=== PATIENT | male | born 1930 | race Caucasian/White ===

== ENCOUNTER 2018-03-20 18:26 | Inpatient (IN) | payer OTHER, BC ==
--- NOTE | 2018-03-20 19:08 | RAD REPORT ---
EXAM DESCRIPTION: CT - Head Brain Wo Cont - 03/20/2018 7:00 pm CLINICAL HISTORY: Confused;Declining state Headache, drowsiness COMPARISON: Head C Spine Mpr Wo Con dated 11/07/2017 TECHNIQUE: All CT scans are performed using dose optimization technique as appropriate and may inclu de automated exposure control or mA/KV adjustment according to patient size. FINDINGS: No intracranial hemorrhage, hydrocephalus or extra-axial fluid collection.Mild generalized brain atrophy is present with mild periventricular and deep white matter chronic microvascular ische grace changes.No areas of brain edema or evidence of midline shift. Fluid is present in the left maxillary antrum, ethmoid air cells and left frontal sinus compatible wi th multifocal sinusitis. The calvarium is intact. IMPRESSION: No acute intracranial abnormality. Multifocal sinusitis.
[2018-03-20 19:49] LABS: Absolute Lymphocytes (CBC) 1.1 K/uL (0.7-4.9); Absolute Monocytes 0.8 K/uL (0.1-1.3); Absolute Neutrophil 6.9 K/uL (1.8-8.0); Basophils % 0.7 % (0-1.3); Eosinophils % 0.3 % (0-4.4); Hematocrit 35.8 % (39.6-49.0); Lymphocytes % 12.1 % (15.3-44.8); MPV 9.3 fL (7.6-11.3); Monocytes % 9.2 % (3.3-12.3)
--- NOTE | 2018-03-20 20:00 | RAD REPORT ---
EXAM DESCRIPTION: RAD - Chest Single View - 03/20/2018 7:08 pm CLINICAL HISTORY: FEVER Chest pain. COMPARISON: Chest Single View dated 11/07/2017 FINDINGS: Portable technique limits examination quality. Linear opacities are present left retrocardiac region which may represent atelectasis or early pneumo toma. The lungs are otherwise clear. The heart is normal in size. No displaced fractures.
[2018-03-20 20:04] LABS: Protime INR 1.18
[2018-03-20 20:13] LABS: ALT/SGPT 20 U/L (12-78); AST/SGOT 15 U/L (15-37); Albumin 3.3 g/dL (3.4-5.0); Alkaline Phosphatase 90 U/L (45-117); BUN Blood Urea Nitrogen 21 mg/dL (7-18); Bicarbonate 27 mmol/L (21-32); Bilirubin Direct 0.2 mg/dL (0-0.2); Bilirubin Total 0.7 mg/dL (0.2-1.0); CKMB Creatine Kinase MB < 1.0 ng/mL (0.3-3.6); Creatine Phosphokinase 35 U/L (39-308); Glucose Level 135 mg/dL (74-106); Lipase 129 U/L (73-393); Sodium Level 139 mmol/L (136-145); Troponin (Emerg Dept Use Only) < 0.02 ng/mL (0.0-0.045)
[2018-03-20 20:15] LABS: Urine Amorphous Sediment 1+ /HPF (NONE SEEN); Urine Bacteria <20 /HPF (NONE SEEN); Urine Culture Reflex Order NOT NEEDED
[2018-03-20 20:16] LABS: Urine Blood 2+ (NEG); Urine Glucose NEGATIVE (NEG); Urine Protein 1+ (NEG); Urine Specific Gravity 1.025 (1.005-1.030)
--- NOTE | 2018-03-20 20:32 | EDPHYS ---
Physician Documentation [facility] Name: French Larson Age: 87 yrs Sex: Male : 1930 Arrival Date: 03/20/2018 Time: 18:43 Bed 3 Private MD: ED Physician Adal Merrill HPI: 03/20 19:20 This 87 yrs old Male presents to ER via EMS with complaints of Altered Mental jr8 Status. 19:20 The patient presents with confusion, decreased mental status, decreased responsiveness. jr8 Onset: The symptoms/episode began/occurred acutely, today, at 14:30. Possible causes: unknown. Associated signs and symptoms: The patient has no apparent associated signs or symptoms. Current symptoms: In the emergency department the patient's symptoms are unchanged from the initial presentation. Patient's baseline: Neuro: alert but confused, Motor: no deficits, Ambulation: walks without assistance, Speech: normal. The patient has not experienced similar symptoms in the past. The patient has not recently seen a physician. Historical: - Allergies: 19:12 PENICILLINS; jl7 - Home Meds: 19:12 sertraline 50 mg oral tab [Active]; lorazepam 1 mg Oral tab 1 tab PRN [Active]; jl7 memantine 28 mg Oral tab 1 cap once daily [Active]; aspirin 325 mg Oral tab 1 tab once daily [Active]; donepezil 10 mg Oral tab 1 tab once daily [Active]; fosinopril 20 mg Oral tab 1 tab once daily [Active]; simvastatin 20 mg Oral tab 1 tab once daily [Active]; donepezil 10 mg oral tab 1 tab once daily [Active]; Triamcinolone Acetonide [place] [Active]; - PMHx: 19:12 Alzheimers; Dementia; Hyperlipidemia; Hypertension; jl7 19:14 basal cell carcinoma; Depression; jl7 - PSHx: 19:14 Heart stents; jl7 - Immunization history:: Adult Immunizations up to date. - Social history:: Smoking status: Patient/guardian denies using tobacco. - Ebola Screening: : No symptoms or risks identified at this time. ROS: 19:20 Unable to obtain ROS due to altered mental status. jr8 Exam: 19:18 Eyes: Pupils equal round and reactive to light, extra-ocular motions intact. Lids and jr8 lashes normal. Conjunctiva and sclera are non-icteric and not injected. Cornea within normal limits. Periorbital areas with no swelling, redness, or edema. ENT: Nares patent. No nasal discharge, no septal abnormalities noted. Tympanic membranes are normal and external auditory canals are clear. Oropharynx with no redness, swelling, or masses, exudates, or evidence of obstruction, uvula midline. Mucous membranes moist. Neck: Trachea midline, no thyromegaly or masses palpated, and no cervical lymphadenopathy. Supple, full range of motion without nuchal rigidity, or vertebral point tenderness. No Meningismus. Cardiovascular: Regular rate and rhythm with a normal S1 and S2. No gallops, murmurs, or rubs. Normal PMI, no JVD. No pulse deficits. Respiratory: Lungs have equal breath sounds bilaterally, clear to auscultation and percussion. No rales, rhonchi or wheezes noted. No increased work of breathing, no retractions or nasal flaring. Abdomen/GI: Soft, non-tender, with normal bowel sounds. No distension or tympany. No guarding or rebound. No evidence of tenderness throughout. Back: No spinal tenderness. No costovertebral tenderness. Full range of motion. Skin: Warm, dry with normal turgor. Normal color with no rashes, no lesions, and no evidence of cellulitis. MS/ Extremity: Pulses equal, no cyanosis. Neurovascular intact. Full, normal range of motion. 19:18 Neuro: Orientation: to person, Mentation: able to follow commands, slow to respond, confused, Memory: immediate memory is impaired, remote memory is impaired, recent memory is impaired, Cranial nerves: extraocular movements are intact, Speech is dysarthric, slowed, slurred, Tongue strength is normal, Motor: moves all fours, Sensation: no obvious gross deficits, seizure activity, is not displayed by the patient, Abnormal movements: there are no abnormal movements. Vital Signs: 18:43 BP 136 / 69; Pulse 76; Resp 16 S; Temp 99.9(O); Pulse Ox 100% on R/A; jl7 19:15 BP 147 / 62; Pulse 77; Resp 18 S; Pulse Ox 100% on R/A; jl7 20:30 BP 146 / 66; Pulse 76; Resp 16; Pulse Ox 100% ; rr5 21:12 BP 129 / 76; Pulse 92; Resp 18; Pulse Ox 95% on R/A; ea 21:30 BP 130 / 84; Pulse 80; Resp 18; Pulse Ox 96% on R/A; ea NIH Stroke Scale Scores: 18:43 NIHSS Score: 11 jl7 19:18 NIHSS Score: 11 jr8 MDM: 18:44 Patient medically screened. [facility] 20:31 Data reviewed: vital signs, nurses notes, lab test result(s), EKG, radiologic studies, [facility] CT scan, plain films. Data interpreted: Pulse oximetry: on room air is 100 %. Interpretation: normal. Counseling: I had a detailed discussion with the patient and/or guardian regarding: the historical points, exam findings, and any diagnostic results supporting the discharge/admit diagnosis, lab results, radiology results, the need for further work-up and treatment in the hospital. Physician consultation: Elaine Robledo MD was called at 20:31, was contacted at 20:31, regarding admission, to the telemetry unit. consult, patient's condition, and will see patient. 03/20 18:45 Order name: Urine Culture [facility] 03/20 18:45 Order name: Basic Metabolic Panel [facility] 03/20 18:45 Order name: Blood Culture Adult (2) [facility] 03/20 18:45 Order name: CBC with Diff [facility] 03/20 18:45 Order name: Ckmb [facility] 03/20 18:45 Order name: CPK [facility] 03/20 18:45 Order name: Lactate [facility] 03/20 18:45 Order name: LFT's; Complete Time: 20:14 [facility] 03/20 18:45 Order name: Lipase; Complete Time: 20:14 [facility] 03/20 18:45 Order name: Procalcitonin; Complete Time: 20:26 [facility] 03/20 18:45 Order name: Protime (+inr); Complete Time: 20:08 [facility] 03/20 18:45 Order name: Ptt, Activated; Complete Time: 20:08 [facility] 03/20 18:45 Order name: Troponin (emerg Dept Use Only); Complete Time: 20:14 [facility] 03/20 18:45 Order name: Urine Microscopic Only; Complete Time: 20:26 [facility] 03/20 18:46 Order name: Urine Culture EDTX 03/20 18:46 Order name: Basic Metabolic Panel; Complete Time: 20:14 EDMS 03/20 18:46 Order name: Blood Culture EDMS 03/20 18:46 Order name: CBC with Automated Diff; Complete Time: 19:57 EDMS 03/20 18:46 Order name: CKMB Creatine Kinase MB; Complete Time: 20:14 EDMS 03/20 18:46 Order name: Creatine Phosphokinase; Complete Time: 20:14 EDMS 03/20 18:46 Order name: Lactate; Complete Time: 20:08 EDMS 03/20 19:53 Order name: Urine Dipstick--Ancillary (enter results); Complete Time: 20:26 2 03/20 20:49 Order name: CBC with Automated Diff EDMS 03/20 20:49 Order name: CBC with Automated Diff EDMS 03/20 20:49 Order name: Comprehensive Metabolic Panel EDMS 03/20 20:49 Order name: Comprehensive Metabolic Panel EDMS 03/20 20:49 Order name: Lipid Profile EDMS 03/20 20:49 Order name: Lipid Profile EDMS 03/20 20:49 Order name: Magnesium EDMS 03/20 20:49 Order name: Magnesium EDMS 03/20 18:45 Order name: Cath; Complete Time: 19:50 8 03/20 18:45 Order name: Chest Single View XRAY; Complete Time: 20:02 8 03/20 18:45 Order name: Accucheck; Complete Time: 19:49 8 03/20 18:45 Order name: Cardiac monitoring; Complete Time: 19:30 8 03/20 18:45 Order name: EKG - Nurse/Tech; Complete Time: 19:49 8 03/20 18:45 Order name: IV Saline Lock - Large Bore; Complete Time: 19:50 8 03/20 18:45 Order name: Labs collected and sent; Complete Time: 19:50 8 03/20 18:45 Order name: O2 Per Protocol; Complete Time: 19:30 8 03/20 18:45 Order name: O2 Sat Monitoring; Complete Time: 19:30 8 03/20 18:45 Order name: Urine Dipstick-Ancillary (obtain specimen); Complete Time: 19:49 8 03/20 18:45 Order name: CT Head Brain wo Cont; Complete Time: 19:21 8 03/20 20:47 Order name: NPO EDMS 03/20 20:47 Order name: NPO [facility] 03/20 20:48 Order name: Physical Therapy Consult [facility]TX 03/20 20:48 Order name: Speech Therapy Consult [facility]TX 03/20 20:48 Order name: NPO [facility] 03/20 20:48 Order name: Echo with Doppler [facility] 03/20 20:49 Order name: EKG Electrocardiogram [facility]TX 03/20 20:49 Order name: Phosphorus [facility]TX 03/20 20:49 Order name: Phosphorus [facility]TX 03/20 20:49 Order name: Stroke Protocol EDTX Administered Medications: No medications were administered Point of Care Testing: Blood Glucose: 19:30 Blood Glucose: 154 mg/dL; rr5 Ranges: Critical Glucose Levels:Adult <50 mg/dl or >400 mg/dl <40 mg/dl or >180 mg/dl Disposition: 03/21 09:21 Co-signature as Attending Physician, Adal Merrill MD I agree with the assessment and enio plan of care. Disposition: 03/20/18 20:31 Hospitalization ordered by Elaine Robledo for Inpatient Admission. Preliminary diagnosis is Altered mental status, unspecified. - Bed requested for Telemetry/MedSurg (Inpatient). - Status is Inpatient Admission. ea - Condition is Fair. - Problem is new. - Symptoms are unchanged. UTI on Admission? No NIH Stroke Scale - NIH Stroke Score Date: 03/20/2018 Time: 18:43 Total Score = 11 1a. Level of Consciousness (LOC) - 0(Alert) 1b. Level of Consciousness (LOC) (Year \T\ Age) - 2(Neither) 1c. LOC Commands (Open \T\ Closes Eyes/Pig Machine Operator Helper) - 0(Both) 2. Best Gaze (Lateral Gaze Paresis) - 0(Normal) 3. Visual Field Loss - 0(No visual loss) 4. Facial Palsy - 0(Normal) 5a. Left Arm: Motor (10-second hold) - 1(Drift) 5b. Right Arm: Motor (10-second hold) - 1(Drift) 6a. Left Leg: Motor (5-second hold - always test supine) - 1(Drift) 6b. Right Leg: Motor (5-second hold - always test supine) - 1(Drift) 7. Limb Ataxia (finger/nose \T\ heel/corea - test with eyes open) - 2(Present in two limbs) 8. Sensory Loss (pinprick arms/legs/face) - 0(Normal) 9. Best Language: Aphasia (description/naming/reading) - 2(Severe aphasia) 10. Dysarthria (speech clarity - read or repeat words) - 1(Mild to Moderate) 11. Extinction and Inattention (visual/tactile/auditory/spatial/personal) - 0(No abnormality) Initials: jl7 NIH Stroke Scale - NIH Stroke Score Date: 03/20/2018 Time: 19:18 Total Score = 11 1a. Level of Consciousness (LOC) - 0(Alert) 1b. Level of Consciousness (LOC) (Year \T\ Age) - 2(Neither) 1c. LOC Commands (Open \T\ Closes Eyes/Pig Machine Operator Helper) - 0(Both) 2. Best Gaze (Lateral Gaze Paresis) - 0(Normal) 3. Visual Field Loss - 0(No visual loss) 4. Facial Palsy - 0(Normal) 5a. Left Arm: Motor (10-second hold) - 1(Drift) 5b. Right Arm: Motor (10-second hold) - 1(Drift) 6a. Left Leg: Motor (5-second hold - always test supine) - 1(Drift) 6b. Right Leg: Motor (5-second hold - always test supine) - 1(Drift) 7. Limb Ataxia (finger/nose \T\ heel/corea - test with eyes open) - 2(Present in two limbs) 8. Sensory Loss (pinprick arms/legs/face) - 0(Normal) 9. Best Language: Aphasia (description/naming/reading) - 2(Severe aphasia) 10. Dysarthria (speech clarity - read or repeat words) - 1(Mild to Moderate) 11. Extinction and Inattention (visual/tactile/auditory/spatial/personal) - 0(No abnormality) Initials: jr8 Signatures: Dispatcher [employer] EDMS Marge He RN RN mw Anderson, Corey, MD MD cha Roszak, Josh, PA PA jr8 Nava Alamo RN RN jl7 Ruth Ann Watkins RN RN ea Corrections: (The following items were deleted from the chart) 03/20 20:52 20:31 Hospitalization Ordered by Elaine Robledo MD for Inpatient Admission. catracho Preliminary diagnosis is Altered mental status, unspecified. Bed requested for Telemetry/MedSurg (Inpatient). Status is Inpatient Admission. Condition is Fair. Problem is new. Symptoms are unchanged. UTI on Admission? No. jr8 20:53 20:49 Chest Pa And Lat (2 Views) ordered. [facility] EDMS 21:45 20:52 03/20/2018 20:31 Hospitalization Ordered by Elaine Robledo MD for ea Inpatient Admission. Preliminary diagnosis is Altered mental status, unspecified. Bed requested for Telemetry/MedSurg (Inpatient). Status is Inpatient Admission. Condition is Fair. Problem is new. Symptoms are unchanged. UTI on Admission? No. mw
--- NOTE | 2018-03-20 20:32 | ER ---
Nurse's Notes [facility] Name: French Larson Age: 87 yrs Sex: Male : 1930 Arrival Date: 03/20/2018 Time: 18:43 Bed 3 Private MD: Diagnosis: Altered mental status, unspecified Presentation: 03/20 18:44 Presenting complaint: EMS states: Family reports he is altered, last known normal 1430, jl7 difficulty speaking. Transition of care: patient was not received from another setting of care. Onset of symptoms was March 20, 2018 at 14:30. Risk Assessment: Do you want to hurt yourself or someone else? Patient reports no desire to harm self or others. Initial Sepsis Screen: Does the patient meet any 2 criteria? Altered Mental Status. No. Patient's initial sepsis screen is negative. Does the patient have a suspected source of infection? Yes: Productive cough/pneumonia. Care prior to arrival: None. Glucose check: 146. 18:44 Method Of Arrival: EMS: [facility] 7 18:44 Acuity: [place] 2 jl7 19:00 An acute neurological deficit is present. Pre-hospital glucose is not applicable to ea this patient. Triage Assessment: 18:43 General: Appears in no apparent distress. uncomfortable, Behavior is calm, cooperative. jl7 Pain: Unable to use pain scale. Patient is disoriented. Does not appear to understand pain scale. EENT: No signs and/or symptoms were reported regarding the EENT system. Neuro: Level of Consciousness is awake, alert, obeys commands, Oriented to person. Cardiovascular: Patient's skin is warm and dry. Respiratory: Airway is patent Respiratory effort is even, unlabored, Respiratory pattern is regular, symmetrical. Derm: Skin is pink, warm \T\ dry. 19:10 The onset of the patients symptoms was March 20, 2018 at 14:30. ea Stroke Activation: Symptom onset < 3 hours Physician: Stroke Attending; Name: ; Notified At: ; Arrived At: Physician: Chief Stroke Resident; Name: ; Notified At: ; Arrived At: Physician: Stroke Resident; Name: ; Notified At: ; Arrived At: Physician: ED Attending; Name: ; Notified At: ; Arrived At: Physician: ED Resident; Name: ; Notified At: ; Arrived At: Historical: - Allergies: 19:12 PENICILLINS; jl7 - Home Meds: 19:12 sertraline 50 mg oral tab [Active]; lorazepam 1 mg Oral tab 1 tab PRN [Active]; jl7 memantine 28 mg Oral tab 1 cap once daily [Active]; aspirin 325 mg Oral tab 1 tab once daily [Active]; donepezil 10 mg Oral tab 1 tab once daily [Active]; fosinopril 20 mg Oral tab 1 tab once daily [Active]; simvastatin 20 mg Oral tab 1 tab once daily [Active]; donepezil 10 mg oral tab 1 tab once daily [Active]; Triamcinolone Acetonide [place] [Active]; - PMHx: 19:12 Alzheimers; Dementia; Hyperlipidemia; Hypertension; jl7 19:14 basal cell carcinoma; Depression; jl7 - PSHx: 19:14 Heart stents; jl7 - Immunization history:: Adult Immunizations up to date. - Social history:: Smoking status: Patient/guardian denies using tobacco. - Ebola Screening: : No symptoms or risks identified at this time. Screenin:15 Abuse screen: Denies threats or abuse. Denies injuries from another. Nutritional jl7 screening: No deficits noted. Tuberculosis screening: No symptoms or risk factors identified. Fall Risk Secondary diagnosis (15 points) Alzheimer's, dementia, IV access (20 points). Gait- Weak (10 pts.). Total Mccall Fall Scale indicates High Risk Score (45 or more points). Fall prevention measures have been instituted. Side Rails Up X 2 Placed Close to Nursing Station Frequent Obs/Assessments Occuring Family Present and informed to notify staff if the need to leave the bedside As available patient and family educated on Fall Prevention Program and Strategies. Assessment: 18:45 The patient has not been NPO before screening. The patient is currently on the jl7 following diet: Regular The patient is alert, and able to follow commands. The patient exhibits slurred or garbled speech. The patient is exhibiting difficulty speaking. The patient is exhibiting difficulty understanding words. The patient is able to swallow own secretions with no drooling or need for suction. Pt cannot follow commands Pt cannot follow commands The patient failed the bedside swallow screening. The patient will be kept NPO until cleared by Speech Therapy or Physician. Provider notified of bedside swallow screening results: Luis MCCONNELL. 18:45 General: See triage assessment. [facility] 18:45 Reassessment: Pt to CT via stretcher with EMILIE Vick. [facility] 19:10 General: Appears in no apparent distress. Behavior is calm. Pain: Unable to use pain ea scale. FLACC scale score is 0 out of 10. Neuro: Level of Consciousness is awake, alert, Oriented to none Speech aphasia. Cardiovascular: Heart tones S1 S2 present Patient's skin is warm and dry. Respiratory: Airway is patent Respiratory effort is even, unlabored, Respiratory pattern is regular, symmetrical, Breath sounds with crackles in right posterior upper lobe. GI: Abdomen is non-distended. Derm: Skin is pink, warm \T\ dry. ирина noted to occipital area of head. 20:30 Reassessment: Pt resting with eyes closed, respirations even and unlabored, chest ea expansions even and symmetrical. Pt awakes with verbal stimuli. Pt not oriented. Son remains at bedside. 20:55 T-PA (Activase) Screening: Contraindications: Other: not applicable at this time. ea 21:27 Reassessment: Report called to Almaz PHAN on fourth floor. Reassessment: Patient and/or ea family updated on plan of care and expected duration. Pain level reassessed. Pt resting with eyes closed, respirations even and unlabored, chest expansions even and symmetrical. 21:44 Reassessment: Patient and/or family updated on plan of care and expected duration. Pain ea level reassessed. Pt awaken, not oriented, respirations even and unlabored, chest expansions even and symmetrical. No s/s of pain or discomfort noted at this time. Pt admitted to fourth floor via stretcher per tech, accompanied by family, pt tolerating well. Vital Signs: 18:43 BP 136 / 69; Pulse 76; Resp 16 S; Temp 99.9(O); Pulse Ox 100% on R/A; jl7 19:15 BP 147 / 62; Pulse 77; Resp 18 S; Pulse Ox 100% on R/A; jl7 20:30 BP 146 / 66; Pulse 76; Resp 16; Pulse Ox 100% ; rr5 21:12 BP 129 / 76; Pulse 92; Resp 18; Pulse Ox 95% on R/A; ea 21:30 BP 130 / 84; Pulse 80; Resp 18; Pulse Ox 96% on R/A; ea NIH Stroke Scale Scores: 18:43 NIHSS Score: 11 jl7 19:18 NIHSS Score: 11 jr8 ED Course: 18:43 Patient arrived in ED. jl7 18:43 Arm band placed on right wrist. jl7 18:43 Patient has correct armband on for positive identification. Placed in gown. Bed in low jl7 position. Call light in reach. Side rails up X2. surveillance system monitor on. Pulse ox on. NIBP on. 18:44 Luis Obregon PA is PHCP. jr8 18:44 Adal Merrill MD is Attending Physician. jr8 19:01 CT Head Brain wo Cont In Process Unspecified. EDMS 19:03 Triage completed. jl7 19:06 X-ray completed. Portable x-ray completed in exam room. Patient tolerated procedure la2 well. 19:09 Chest Single View XRAY In Process Unspecified. EDMS 19:25 Inserted saline lock: 22 gauge in left antecubital area, using aseptic technique. Blood ea collected. 19:44 Tai Aleman, RN is Primary Nurse. rr5 19:47 Straight cath inserted, using sterile technique, 18 Fr. Specimen obtained. jb5 19:48 Ruth Ann Watkins, EMILIE is Primary Nurse. ea 19:49 Urine Culture Sent. jb5 19:49 Urine Culture Sent. jb5 20:31 Elaine Robledo MD is Hospitalizing Provider. jr8 20:47 No provider procedures requiring assistance completed. Patient admitted, IV remains in ea place. Administered Medications: No medications were administered Point of Care Testing: Blood Glucose: 19:30 Blood Glucose: 154 mg/dL; rr5 Ranges: Outcome: 20:31 Decision to Hospitalize by Provider. jr8 20:47 Instructed on Pt's son instructed on need for admit, son verbalized the understanding ea of instruction 21:26 Condition: stable ea 21:43 Admitted to Med/surg accompanied by tech, family with patient, via stretcher, room 402, ea with chart, Report called to Almaz PHAN 21:45 Patient left the ED. ea NIH Stroke Scale - NIH Stroke Score Date: 03/20/2018 Time: 18:43 Total Score = 11 1a. Level of Consciousness (LOC) - 0(Alert) 1b. Level of Consciousness (LOC) (Year \T\ Age) - 2(Neither) 1c. LOC Commands (Open \T\ Closes Eyes/Neon Sign Mechanic) - 0(Both) 2. Best Gaze (Lateral Gaze Paresis) - 0(Normal) 3. Visual Field Loss - 0(No visual loss) 4. Facial Palsy - 0(Normal) 5a. Left Arm: Motor (10-second hold) - 1(Drift) 5b. Right Arm: Motor (10-second hold) - 1(Drift) 6a. Left Leg: Motor (5-second hold - always test supine) - 1(Drift) 6b. Right Leg: Motor (5-second hold - always test supine) - 1(Drift) 7. Limb Ataxia (finger/nose \T\ heel/corea - test with eyes open) - 2(Present in two limbs) 8. Sensory Loss (pinprick arms/legs/face) - 0(Normal) 9. Best Language: Aphasia (description/naming/reading) - 2(Severe aphasia) 10. Dysarthria (speech clarity - read or repeat words) - 1(Mild to Moderate) 11. Extinction and Inattention (visual/tactile/auditory/spatial/personal) - 0(No abnormality) Initials: jl7 NIH Stroke Scale - NIH Stroke Score Date: 03/20/2018 Time: 19:18 Total Score = 11 1a. Level of Consciousness (LOC) - 0(Alert) 1b. Level of Consciousness (LOC) (Year \T\ Age) - 2(Neither) 1c. LOC Commands (Open \T\ Closes Eyes/Neon Sign Mechanic) - 0(Both) 2. Best Gaze (Lateral Gaze Paresis) - 0(Normal) 3. Visual Field Loss - 0(No visual loss) 4. Facial Palsy - 0(Normal) 5a. Left Arm: Motor (10-second hold) - 1(Drift) 5b. Right Arm: Motor (10-second hold) - 1(Drift) 6a. Left Leg: Motor (5-second hold - always test supine) - 1(Drift) 6b. Right Leg: Motor (5-second hold - always test supine) - 1(Drift) 7. Limb Ataxia (finger/nose \T\ heel/corea - test with eyes open) - 2(Present in two limbs) 8. Sensory Loss (pinprick arms/legs/face) - 0(Normal) 9. Best Language: Aphasia (description/naming/reading) - 2(Severe aphasia) 10. Dysarthria (speech clarity - read or repeat words) - 1(Mild to Moderate) 11. Extinction and Inattention (visual/tactile/auditory/spatial/personal) - 0(No abnormality) Initials: jr8 Signatures: Dispatcher [employer] EDLuis García PA PA jr8 Cristiane Allen jb5 Nava Alamo RN RN jl7 Ruth Ann Watkins RN RN ea Lidia Garcia2 Tai Aleman RN RN rr5 Corrections: (The following items were deleted from the chart) 19:07 18:44 Care prior to arrival: None. jl7 jl7 20:55 19:10 General: Appears in no apparent distress. Behavior is calm, cooperative, ea appropriate for age, ea 20:55 19:10 Neuro: Level of Consciousness is awake, alert, obeys commands, Oriented ea to person, place, time, situation, ea
[2018-03-20] MEDS ORDERED: ONDANSETRON 4 MG/2 ML VIAL IV PRN (20:43)
[2018-03-20] MEDS ORDERED: ACETAMINOPHEN 500 MG TAB PO PRN (20:43)
[2018-03-20] MEDS ORDERED: MAGNESIUM HYDROXIDE 8% 30 ML PO PRN (20:43)
[2018-03-20] MEDS ORDERED: ATORVASTATIN 20 MG TAB PO SCH (21:00)
[2018-03-20] MEDS ORDERED: NA CHLORIDE 0.9% 1,000 ML IV SCH (21:00)
[2018-03-20 22:19] VITALS: BMI 29.3
[2018-03-20] MEDS ORDERED: ACETAMINOPHEN 650MG/RECT SUPP PR ONE (22:40)
[2018-03-20] MEDS ORDERED: ACETAMINOPHEN 325 MG/SUPP PR ONE (22:41)
[2018-03-21 01:49] VITALS: O2SAT 96
[2018-03-21 06:27] LABS: Absolute Lymphocytes (CBC) 1.3 K/uL (0.7-4.9); Absolute Monocytes 0.7 K/uL (0.1-1.3); Absolute Neutrophil 5.6 K/uL (1.8-8.0); Basophils % 0.4 % (0-1.3); Eosinophils % 1.2 % (0-4.4); Hematocrit 32.9 % (39.6-49.0); Lymphocytes % 16.4 % (15.3-44.8); MPV 9.1 fL (7.6-11.3); Monocytes % 9.3 % (3.3-12.3); RBC Red Blood Cell Count 3.86 M/uL (4.33-5.43)
[2018-03-21 06:33] LABS: ALT/SGPT 16 U/L (12-78); AST/SGOT 11 U/L (15-37); Albumin 2.9 g/dL (3.4-5.0); Alkaline Phosphatase 79 U/L (45-117); BUN Blood Urea Nitrogen 17 mg/dL (7-18); Bicarbonate 26 mmol/L (21-32); Bilirubin Total 0.8 mg/dL (0.2-1.0); Glucose Level 106 mg/dL (74-106); HDL Cholesterol 52 mg/dL (40-60); LDL, Direct 60 mg/dL (100-129); Magnesium 2.2 mg/dL (1.8-2.4); Phosphorus 2.4 mg/dL (2.5-4.9); Potassium 3.7 mmol/L (3.5-5.1); Protein, Total 6.2 g/dL (6.4-8.2); Sodium Level 144 mmol/L (136-145)
--- NOTE | 2018-03-21 07:23 | EKG ---
Test Date: 2018-03-20 Test Time: 19:20:21 [employer] Technician: LORIN MEASUREMENT RESULTS: Intervals: Rate: 90 AR: QRSD: 72 QT: 428 QTc: 523 [place]: P: AR: QRS: 5 T: 50 INTERPRETIVE STATEMENTS: atrial flutter with variable AV block Low voltage QRS Septal infarct, age undetermined Abnormal ECG Compared to ECG 11/07/2017 09:22:31 no significant change from previous ECG Electronically Signed On 03-21-18 07:16:22 [employer] by Jose Chadwick
[2018-03-21] MEDS ORDERED: PIPER/TAZO/NS 3.375gm 3.375 GM/100 ML BAG IVPB SCH (07:30)
[2018-03-21 08:57] VITALS: BP 155/72; TEMP 99.1
[2018-03-21] MEDS ORDERED: CLINDAMYCIN INJ 600 MG in NA CHLORIDE 0.9% 50 ML IV SCH (09:00)
[2018-03-21] MEDS ORDERED: CLOPIDOGREL 75 MG TABLET PO SCH (09:00)
[2018-03-21] MEDS ORDERED: ASPIRIN EC 81 MG TAB PO SCH (09:00)
--- NOTE | 2018-03-21 09:14 | P.HP ---
Certification for Inpatient Patient admitted to: Inpatient With expected LOS: >2 Midnights Patient will require the following post-hospital care: Home Health Services Practitioner: I am a practitioner with admitting privileges, knowledge of patient current condition, hospital course, and medical plan of care. Services: Services provided to patient in accordance with Admission requirements found in Title 42 Section 412.3 of the Code of Federal Regulations Patient History Date of Service: 03/20/18 Reason for admission: altered mental status History of Present Illness: Patient is an 87-year-old gentleman who came to the hospital altered mental status. Patient had excision of a scalp lesion about 10 days ago. This was diagnosed as basal cell CA. Patient has not been as active since the procedure. Prior to the procedure he would ambulate on his own without any assistance and he did most of his ADLs all by himself. He is a little forgetful but for the most part he is very active. He does have swelling of his lower extremities from time to time but no other major issues over the last year. A little bit around the afternoon he started having slurred speech. Patient's son was concerned and brought him into the emergency room. Patient had a CT of the brain which was negative. His electrolytes did not reveal any significant abnormality. He was in atrial fibrillation but his rate is controlled. The concern is that he may have had a stroke. Will get MRI of the brain for further evaluation. Allergies Penicillins Allergy (Verified 03/20/18 22:08) Hives Home Medications: Aspirin 325 mg PO DAILY 03/20/18 Donepezil [Aricept] 10 mg PO BEDTIME 03/20/18 Fosinopril Sodium 20 mg PO DAILY 03/20/18 Memantine HCl [Namenda Xr] 28 mg PO DAILY 03/20/18 Mupirocin 1 appl TOP DAILY 03/20/18 Propylene Glycol/Peg 400/Pf [Lubricant Eye 0.4%-0.3% Drops] 1 each OP BID Sertraline [Zoloft] 25 mg PO DAILY 03/20/18 Simvastatin 20 mg PO BEDTIME 03/20/18 - Past Medical/Surgical History Has patient received pneumonia vaccine in the past: Yes Diabetic: No -: alzhiemers -: dementia -: hyperlipidemia -: HTN -: basal cell carcinoma -: depression -: heart stents - Family History Father Family History: Reviewed- Non-Contributory - Social History Smoking Status: Former smoker Alcohol use: No CD- Drugs: No Caffeine use: No Place of Residence: [facility] Review of Systems 10-point ROS is otherwise unremarkable Physical Examination - Vital Signs Temperature: 99.1 F Blood Pressure: 155/72 Pulse: 67 Respirations: 18 Pulse Ox (%): 96 - Physical Exam General: Alert, In no apparent distress, Oriented x1 HEENT: Atraumatic, PERRLA, Mucous membr. moist/pink, EOMI, Sclerae nonicteric Neck: Supple, 2+ carotid pulse no bruit, No LAD, Without JVD or thyroid abnormality Respiratory: Clear to auscultation bilaterally, Normal air movement Cardiovascular: Normal S1 S2, Irregular heart rate/rhythm, Systolic murmur Gastrointestinal: Normal bowel sounds, Soft and benign, Non-distended, No tenderness Musculoskeletal: No tenderness Integumentary: No rashes Neurological: Normal speech, Normal tone, Sensation intact, Cranial nerves 3-12 intact, Abnormal gait, Abnormal strength, Abnormal affect Lymphatics: No axilla or inguinal lymphadenopathy - Studies Laboratory Data (last 24 hrs) 03/20/18 19:25: PT 14.0 H, INR 1.18, APTT 31.7 03/20/18 19:25: WBC 8.9 D, Hgb 11.8 L, Hct 35.8 L D, Plt Count 174 03/20/18 19:25: Sodium 139, Potassium 4.0, BUN 21 H, Creatinine 1.20, Glucose 135 H, Total Bilirubin 0.7, AST 15, ALT 20, Alkaline Phosphatase 90, Lipase 129 Assessment & Plan - Problems (Diagnosis) (1) Altered mental status Current Visit: Yes Status: Acute (2) Slurred speech Current Visit: Yes Status: Acute (3) Atrial fibrillation Current Visit: Yes Status: Acute (4) Scalp lesion Current Visit: Yes Status: Acute (5) History of coronary artery disease Current Visit: Yes Status: Acute (6) History of coronary artery stent placement Current Visit: Yes Status: Acute - Plan 1. MRI of the brain 2. Echocardiogram and carotid Doppler 3. Anti-platelet therapy and statin therapy 4. Neurology consultation 5. Physical therapy/occupational therapy/speech therapy evaluation 6. Modified barium swallow study 7. DVT prophylaxis if MRI is negative for microhemorrhage in an ischemic stroke ; hemorrhagic stroke not seen on CT scan Discharge Plan: Home Plan to discharge in: Greater than 2 days - Advance Directives Does patient have a Living Will: Yes Does patient have a Durable POA for Healthcare: Yes - Code Status/Comfort Care Code Status Assessed: Yes Code Status: Full Code Critical Care: No Time Spent Managing PTS Care (In Minutes): 50
--- NOTE | 2018-03-21 10:16 | CON ---
History Of Present Illness: Mr. Larson is 87 years old. He came into the hospital because his ment al status seemed to be different. We do not have any old records of what his mental status is like w ith any details in our old charts. I believe this is his first hospital admission here. Mr. Larson has dementia that is severe; it is attributed to Alzheimer's disease. We do not know if he has a hi story of atrial fibrillation or not, the patient is unable to say. His conversation consists of "hel lo" and answering a question yes or no occasionally, most questions he just stares, and does not seem to really comprehend, but he was able to answer "no" to does he smoke, and he does not remember what was wrong when he came to the hospital. About a week ago, he had a basal cell carcinoma removed. Cristy hercules has a bandage on his face. Outpatient Medications: Memantine, Aricept, sertraline, Lubricant Eye Drops, simvastatin, fosinopril , aspirin, and mupirocin ointment applied to his surgical site. Allergies: HE IS ALLERGIC TO PENICILLIN. Physical Examination: General: He appears to be his stated age. He is awake, but not oriented to person, place, or time. Does not seem to be aphasic or deaf, but severely demented. Neck: There is no carotid bruit. Lungs: Clear. Heart: Irregular. Abdomen: Soft. Extremities: Changes of chronic venous stasis without edema. No cyanosis, clubbing. Distal pulses diminished, but palpable. Diagnostic Data: His electrocardiogram shows atrial flutter, variable AV block. Average ventricular response rate when he is at rest, it is in the 70s. There is evidence of possible septal infarct. We have no old EKGs for comparison. Mr. Gilliland atrial flutter should ideally be treated with an an ticoagulant given his dementia, I have reservations about doing that. I think it is probably better to not give him anticoagulant unless there is a clear desire, the family to provide 24/7 care to him to make sure he is not at risk of falling. SH/MODL Voice ID: [id number] Report ID: [id number]
--- NOTE | 2018-03-21 12:21 | ECHO ---
HEIGHT: 5 ft 9 in WEIGHT: 198 lb 11.2 oz DATE OF STUDY: 03/21/[address]: 2-DIMENSIONAL: YES M.MODE: YES DOPPLER: YES COLOR FLOW: YES TDS: NO PORTABLE: NO DEFINITY: NO BUBBLE STUDY: NO DIAGNOSIS: STROKE CARDIAC HISTORY: CATHERIZATION: NO SURGERY: NO PROSTHETIC VALVE: NO PACEMAKER: NO MEASUREMENTS (cm) DIASTOLIC (NORMALS) SYSTOLIC (NORMALS) IVSd 1.1 (0.6-1.2) LA Diam 4.5 (1.9-4.0) LVEF 62% LVIDd 4.2 (3.5-5.7) LVIDs 2.8 (2.0-3.5) %FS 33% LVPWd 1.1 (0.6-1.2) Ao Diam 3.6 (2.0-3.7) 2 DIMENSIONAL ASSESSMENT: RIGHT ATRIUM: NORMAL LEFT ATRIUM: DILATED RIGHT VENTRICLE: NORMAL LEFT VENTRICLE: NORMAL TRICUSPID VALVE: NORMAL MITRAL VALVE: NORMAL PULMONIC VALVE: NORMAL AORTIC VALVE: NORMAL PERICARDIAL EFFUSION: NONE AORTIC ROOT: NORMAL LEFT VENTRICULAR WALL MOTION: NORMAL. DOPPLER/COLOR FLOW: MILD TRICUSPID REGURGITATION. ESTIMATED RIGHT VENTRICULAR SYSTOLIC PRESSURE 58 MMHG. (MODERATE PULMONARY HYPERTENSION). COMMENTS: NORMAL LEFT VENTRICULAR EJECTION FRACTION. DILATED LEFT ATRIUM. MILD TRICUSPID REGURGITATION. MODERATE PULMONARY HYPERTENSION. TECHNOLOGIST: DIVINE COBB RDCS
--- NOTE | 2018-03-21 13:01 | P.DS ---
Admission Date: 03/20/18 Discharge Date: 03/21/18 Reason for Admission: altered mental status Consultations: Cardiology - Problems (1) Altered mental status Onset Date: 03/21/18 Current Visit: Yes Status: Acute (2) Atrial fibrillation Onset Date: 03/21/18 Current Visit: Yes Status: Acute (3) History of coronary artery disease Onset Date: 03/21/18 Current Visit: Yes Status: Acute (4) History of coronary artery stent placement Onset Date: 03/21/18 Current Visit: Yes Status: Acute (5) Scalp lesion Onset Date: 03/21/18 Current Visit: Yes Status: Acute Brief History of Present Illness: Patient is an 87-year-old gentleman who came to the hospital altered mental status. Patient had excision of a scalp lesion about 10 days ago. This was diagnosed as basal cell CA. Patient has not been as active since the procedure. Prior to the procedure he would ambulate on his own without any assistance and he did most of his ADLs all by himself. He is a little forgetful but for the most part he is very active. He does have swelling of his lower extremities from time to time but no other major issues over the last year. A little bit around the afternoon he started having slurred speech. Patient's son was concerned and brought him into the emergency room. Patient had a CT of the brain which was negative. His electrolytes did not reveal any significant abnormality. He was in atrial fibrillation but his rate is controlled. The concern is that he may have had a stroke. Will get MRI of the brain for further evaluation. Hospital Course: This is a 87-year-old male with significant past medical history of end-stage Alzheimer's disease with severe dementia, CAD cardiac stents hypertension hyperlipidemia who was admitted overnight for altered mental status and slur speech. Patient has been declining since his scalp lesion was removed about 10 days ago. Patient has been having progressively decline in his status at the [facility]. Patient was admitted an MRI was ordered to rule out stroke. An MRI patient was found to have cardiopulmonary arrest. Patient is DNR DNI thus no resuscitation was done. Patient was pronounced at 12:10 p.m. with no cardiac activity after checking neurological status. Family was informed and patient was brought back to original room for family to view the patient. Vital Signs/Physical Exam: Temp Pulse Resp BP Pulse Ox 99.1 F 67 18 155/72 H 96 02/04/19 09:20 03/21/18 09:20 03/21/18 09:20 03/21/18 09:20 03/21/18 09:20 General: Demented, Confused Neck: JVD distended Respiratory: Normal air movement, Expiratory wheezes, Inspiratory wheezes Cardiovascular: Normal S1 S2, Irregular heart rate/rhythm Musculoskeletal: No tenderness Integumentary: Skin lesion Neurological: Abnormal speech, Abnormal strength, Abnormal affect, Dementia Lymphatics: No axilla or inguinal lymphadenopathy Laboratory Data at Discharge: WBC 7.7 K/uL (4.3-10.9) 03/21/18 05:24 Hgb 11.3 g/dL (13.6-17.9) L 03/21/18 05:24 Hct 32.9 % (39.6-49.0) L 03/21/18 05:24 Plt Count 168 K/uL (152-406) 03/21/18 05:24 PT 14.0 SECONDS (9.5-12.5) H 03/20/18 19:25 INR 1.18 03/20/18 19:25 APTT 31.7 SECONDS (24.3-36.9) 03/20/18 19:25 Sodium 144 mmol/L (136-145) 03/21/18 05:24 Potassium 3.7 mmol/L (3.5-5.1) 03/21/18 05:24 BUN 17 mg/dL (7-18) 03/21/18 05:24 Creatinine 0.88 mg/dL (0.55-1.3) 03/21/18 05:24 Glucose 106 mg/dL (74-106) 03/21/18 05:24 Phosphorus 2.4 mg/dL (2.5-4.9) L 03/21/18 05:24 Magnesium 2.2 mg/dL (1.8-2.4) 03/21/18 05:24 Total Bilirubin 0.8 mg/dL (0.2-1.0) 03/21/18 05:24 AST 11 U/L (15-37) L 03/21/18 05:24 ALT 16 U/L (12-78) 03/21/18 05:24 Alkaline Phosphatase 79 U/L (45-117) 03/21/18 05:24 Triglycerides 75 mg/dL (<150) 03/21/18 05:24 Cholesterol 122 mg/dL (<200) 03/21/18 05:24 LDL Cholesterol Direct 60 mg/dL (100-129) L 03/21/18 05:24 HDL Cholesterol 52 mg/dL (40-60) 03/21/18 05:24 Cholesterol/HDL Ratio 2.35 03/21/18 05:24 Lipase 129 U/L (73-393) 03/20/18 19:25 Home Medications: Aspirin 325 mg PO DAILY 03/20/18 Donepezil [Aricept] 10 mg PO BEDTIME 03/20/18 Fosinopril Sodium 20 mg PO DAILY 03/20/18 Memantine HCl [Namenda Xr] 28 mg PO DAILY 03/20/18 Mupirocin 1 appl TOP DAILY 03/20/18 Propylene Glycol/Peg 400/Pf [Lubricant Eye 0.4%-0.3% Drops] 1 each OP BID Sertraline [Zoloft] 25 mg PO DAILY 03/20/18 Simvastatin 20 mg PO BEDTIME 03/20/18
[2018-03-21] MEDS ORDERED: ENOXAPARIN 40 MG/0.4 ML SQ SCH (17:00)
[2018-03-21] MEDS ORDERED: METOPROLOL TAR 25 MG TAB PO SCH (18:00)
== END 2018-03-21 13:53 | disposition expired | DRG 948 ==
LOC: ER 18:26 → ERHOLD 20:55 → 4TH 21:33
PROVIDERS: ADMIT Hospitalist; ATTEND Family Medicine
DX: R41.82 Altered mental status, unspecified (principal); I48.92 Unspecified atrial flutter; I48.91 Unspecified atrial fibrillation; I25.10 Atherosclerotic heart disease of native coronary artery without angina pectoris; Z95.5 Presence of coronary angioplasty implant and graft; C44.41 Basal cell carcinoma of skin of scalp and neck; I46.9 Cardiac arrest, cause unspecified; Z66 Do not resuscitate; G30.8 Other Alzheimer's disease; F02.80 Dementia in other diseases classified elsewhere, unspecified severity, without behavioral disturbance, psychotic disturbance, mood disturbance, and anxiety; I10 Essential (primary) hypertension; E78.5 Hyperlipidemia, unspecified; Z88.0 Allergy status to penicillin; F32.9 Major depressive disorder, single episode, unspecified; Z87.891 Personal history of nicotine dependence; R47.81 Slurred speech; I44.39 Other atrioventricular block
CPT/HCPCS: 36415; 51702; 70450; 71045; 80048; 80053; 80061; 80076; 81003; 81015; 82550; 82553; 82962; 83605; 83690; 83735; 84100; 84145; 84484; 85025; 85610; 85730; 87040; 87086; 87088; 92610; 93005; 93306; 99285; J2543; J7030